=== PATIENT | male | born 1985 | race Caucasian/White ===

== ENCOUNTER 2017-03-08 07:16 | Emergency (ER) | payer OTHER ==
[~2017-03-08] VITALS: Ht 188 cm; Wt 129.3 kg
[2017-03-08 07:26] VITALS: BP 154/118
--- NOTE | 2017-03-08 08:03 | ED SKIN/ALLERGY COMPLAINT ---
History of Present Illness General Chief Complaint: Male Genitourinary Problems Stated Complaint: "I NEED STD TEST" Source: patient Exam Limitations: no limitations Vital Signs & Intake/Output Vital Signs & Intake/Output Vital Signs Date Time Temp Pulse Resp B/P B/P Pulse O2 O2 Flow FiO2 Mean Ox Delivery Rate 03/08 0726 98.0 95 16 154/118 97 Room Air Allergies Coded Allergies: No Known Allergies (03/08/17) Reconcile Medications Fluoxetine HCl (Prozac) 40 MG CAPSULE 1 CAP PO QA MENTAL HEALTH (Reported) Nystatin/Triamcin (Nystatin-Triamcinolone Cream) 100,000 UNIT/GRAM-0.1 % CREAM..G. 1 ABELARDO TOP BID PRN RASH apply to affected area(s) Triamcinolone Acetonide 0.1 % OINT...G. 1 ABELARDO TOP BID PRN hand RASH apply to affected area(s) 0.1% Triage Note: PT STATES HE IS HERE FOR STD TESTING. PT STATES HIS TOLD HIM THAT SOMETHING SHOWED UP IN ONE OF HER TEST SO HE IS GETTING CHECKED OUT. Triage Nurses Notes Reviewed? yes HPI: Patient presents for evaluation of a possible syphilis exposure. Patient states that he is currently getting into a divorce with his and apparently she had relations with somebody in October who tested weakly or include clue simply positive for syphilis. He was just notified of this potential exposure yesterday. Patient is concerned because he has a rash of his hands that has been present for a few months now along with bilateral groin crease rash and skin pustules in the perigenital region. Patient denies any associated fever or cold symptoms. He denies any dysuria or penile discharge. There has been no swollen lymph nodes. Past History Travel History Traveled to [place] past 21 day No Medical History Any Pertinent Medical History? see below for history Cardiovascular: hypertension Surgical History Surgical History: non-contributory Psychosocial History What is your primary language Khmer Tobacco Use: Current Not Daily Daily Tobacco Use Amount/Type: =< 4 Cigarettes daily ETOH Use: occasional use Illicit Drug Use: denies illicit drug use Family History Hx Contributory? No Review of Systems Review of Systems Constitutional: Reports: no symptoms. EENTM: Reports: no symptoms. Respiratory: Reports: no symptoms. Cardiovascular: Reports: no symptoms. GI: Reports: no symptoms. Genitourinary: Reports: no symptoms. Musculoskeletal: Reports: no symptoms. Skin: Reports: see HPI. Neurological/Psychological: Reports: no symptoms. Hematologic/Endocrine: Reports: no symptoms. Immunologic/Allergic: Reports: no symptoms. All Other Systems: Reviewed and Negative Physical Exam Physical Exam General Appearance: SEE BELOW Comments: Gen.: Well-nourished, well-developed, no acute respiratory distress. Head: Normocephalic, atraumatic. Eyes: Normal inspection bilaterally Ears: Normal inspection bilaterally Nose: Normal inspection Throat/mouth : Moist mucosa Neck: Supple, full range of motion, no goiter Heart: Regular rate and rhythm, no murmurs rubs or gallops Lungs: Clear to auscultation bilaterally with normal air entry Chest: Nontender Back: Normal range of motion Abdomen: Soft, nontender, nondistended, normal bowel sounds Extremities: Normal range of motion grossly, equal radial pulses, no cyanosis clubbing or edema, mildly erythematous patchy and mildly exfoliating macular rash of both hands. Neurologic: Cranial nerves grossly intact, speech is clear Skin: warm and dry, bilateral beefy red-appearing rash of the groin creases, scattered pustular lesions of the suprapubic region, no discharge from the penis. No lymphadenopathy. Psychiatric: Calm, cooperative, no apparent delusions or hallucinations Progress Differential Diagnosis: contact dermatitis, syphilis/gonococcemia Plan of Care: Orders Procedure Date/time Status VDRL 03/08 0800 Active CHLAMYDIA-GC DNA PROBE 03/08 0729 Active Laboratory Tests 03/08/17 0808: RPR Titer/FTA Pending Microbiology 03/08 0758 URINE ROUT: GC DNA Probe - RECD 03/08 0758 URINE ROUT: Chlamydia DNA Probe (RYAN) - RECD Departure Departure Disposition: HOME OR SELF CARE Condition: Stable Clinical Impression Primary Impression: STD exposure Secondary Impressions: Dermatitis, Tinea cruris Referrals: PATIENT HAS NO PRIMARY CARE DR (PCP/Family) Additional Instructions: You have been given 2 medications for rashes. The nystatin triamcinolone combination should be used for the groin rash. The triamcinolone only ointment should be used on your hands. Follow-up with a air intercept controller for reevaluation this week. Notify your primary care doctor of this emergency department visit and treatment plan and arrange for a follow-up appointment for general medical evaluation for follow-up of your high blood pressure and general medical evaluation this week. I will contact you if you're outstanding lab tests/ cultures require any further treatment. Return immediately if any concerns or sudden worsening. Departure Forms: Customer Survey General Discharge Information Prescriptions: Current Visit Scripts Nystatin/Triamcin (Nystatin-Triamcinolone Cream) 1 ABELARDO TOP BID PRN RASH #30 GM Ref 2 apply to affected area(s) Triamcinolone Acetonide 1 ABELARDO TOP BID PRN hand RASH #1 TUBE apply to affected area(s) 0.1%
[2017-03-08] MEDS ORDERED: PROZAC40 M1 PO (08:27)
[2017-03-08] MEDS ORDERED: NYSTATIN-TRIAMC15 GM TOP (08:41)
[2017-03-08] MEDS ORDERED: TRIAMCINOLONE A15 G3 TOP (08:41)
== END 2017-03-08 09:13 ==
LOC: ERH 07:16
DX: Z20.2 Contact with and (suspected) exposure to infections with a predominantly sexual mode of transmission (principal); B35.6 Tinea cruris; L25.9 Unspecified contact dermatitis, unspecified cause
CPT/HCPCS: 87491; 87591